=== PATIENT | male | born 1970 | race American Indian/Alaskan Native ===

== ENCOUNTER 2017-07-18 10:22 | Emergency (ER) | payer OTHER ==
[2017-07-18 10:35] VITALS: BP 146/89; PULSE 77; TEMP 98.2; BMI 26.1
[2017-07-18] MEDS ORDERED: IBUPROFEN 600 MG TABLET (FP) PO ONE ×2 (11:01→11:17)
--- NOTE | 2017-07-18 11:01 | PDOC ---
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 Patient reports R arm/elbow pain and R knee abrasion after a slip and fall in a parking lot. Patient endorses numbness to the R arm and presents to the ED for further evaluation. Allergies: NKA Past surgical history: None Social history:None PCP: Dr. Cheung <Ann Marie Fournier - Last Filed: 07/18/17 11:20> <Alejandra Willson - Last Filed: 07/18/17 12:49> - General Chief Complaint: Injury Stated Complaint: FALL/ RT HAND PAIN Time Seen by Provider: 07/18/17 10:57 Past History <Ann Marie Fournier - Last Filed: 07/18/17 11:20> - Past Medical History COPD: No - Suicide/Smoking/Psychosocial Hx Smoking History: Never smoked Have you smoked in the past 12 months: No Information on smoking cessation initiated: No Hx Alcohol Use: No Drug/Substance Use Hx: No Substance Use Type: None <Alejandra Willson - Last Filed: 07/18/17 12:49> - Past Medical History Allergies/Adverse Reactions: Allergies Allergy/AdvReac Type Severity Reaction Status Date / Time No Known Allergies Allergy Verified 07/18/17 10:32 Home Medications: Ambulatory Orders NK [No Known Home Medication] 07/18/17 Review of Systems - Review of Systems Able to Perform ROS?: Yes Comments:: 07/18/17 11:20 GENERAL/CONSTITUTIONAL: No fever or chills. No weakness. HEAD, EYES, EARS, NOSE AND THROAT: No change in vision. No ear pain or discharge. No sore throat. GASTROINTESTINAL: No nausea, vomiting, diarrhea or constipation. GENITOURINARY: No dysuria, frequency, or change in urination. CARDIOVASCULAR: No chest pain or shortness of breath. RESPIRATORY: No cough, wheezing, or hemoptysis. MUSCULOSKELETAL: +R arm pain. +R elbow pain. No joint or muscle swelling or pain. No neck or back pain. SKIN: +R knee abrasion. No rash NEUROLOGIC: No headache, vertigo, loss of consciousness, or change in strength/ sensation. ENDOCRINE: No increased thirst. No abnormal weight change. HEMATOLOGIC/LYMPHATIC: No anemia, easy bleeding, or history of blood clots. ALLERGIC/IMMUNOLOGIC: No hives or skin allergy. <Ann Marie Fournier - Last Filed: 07/18/17 11:20> *Physical Exam - Vital Signs Last Vital Signs Temp Pulse Resp BP Pulse Ox 98.2 F 77 18 146/89 100 07/18/17 10:33 07/18/17 10:33 07/18/17 10:33 07/18/17 10:33 07/18/17 10:33 - Physical Exam Comments: 07/18/17 11:20 GENERAL: Awake, alert, and fully oriented, in no acute distress HEAD: No signs of trauma EYES: PERRLA, EOMI, sclera anicteric, conjunctiva clear ENT: Auricles normal inspection, hearing grossly normal, nares patent, oropharynx clear without exudates. Moist mucosa NECK: Normal ROM, supple, no lymphadenopathy, JVD, or masses LUNGS: Breath sounds equal, clear to auscultation bilaterally. No wheezes, and no crackles HEART: Regular rate and rhythm, normal S1 and S2, no murmurs, rubs or gallops ABDOMEN: Soft, nontender, normoactive bowel sounds. No guarding, no rebound. No masses EXTREMITIES: +Tenderness over the R anatomical snuff box. +Full ROM of R wrist. +Tenderness to R lateral proximal forearm. Normal range of motion, no edema. No clubbing or cyanosis. No cords, erythema, or tenderness. NEUROLOGICAL: Cranial nerves II through XII grossly intact. Normal speech, normal gait SKIN: +Abrasion to the R knee. Warm, Dry, normal turgor, no rashes or lesions noted. <Ann Marie Fournier - Last Filed: 07/18/17 11:20> - Vital Signs Last Vital Signs Temp Pulse Resp BP Pulse Ox 98.2 F 77 18 146/89 100 07/18/17 10:33 07/18/17 10:33 07/18/17 10:33 07/18/17 10:33 07/18/17 10:33 <Alejandra Willson - Last Filed: 07/18/17 12:49> Procedures - Splinting Splint Location: Right: Wrist, Elbow Hand-Made Type: orthoglass Splint Type: Yes: Wrist, Posterior Matt Bandage: yes, 2", 3" Sling: No Complications: No <Alejandra Willson - Last Filed: 07/18/17 12:49> *DC/Admit/Observation/Transfer - Attestations Scribe Attestion: 07/18/17 11:23 Documentation prepared by Ann Marie Fournier, acting as medical office secretary for Alejandra Willson MD <Ann Marie Fournier - Last Filed: 07/18/17 11:20> - Discharge Dispostion Admit: No <Alejandra Willson - Last Filed: 07/18/17 12:49> Diagnosis at time of Disposition: Wrist pain Qualifiers: Laterality: right Qualified Code(s): M25.531 - Pain in right wrist - Discharge Dispostion Disposition: HOME Condition at time of disposition: Stable - Referrals Referrals: Chon Rivas MD [Staff Physician] - - Patient Instructions Printed Discharge Instructions: DI for Wrist Sprain, How to Take Care of Your Splint Additional Instructions: Keep thumb spica in place for 1 week, then follow up with orthopedics, as you may need another x-ray. Motrin as needed for pain. - Post Discharge Activity
== END 2017-07-18 12:52 | disposition home or self-care (01) ==
LOC: JERFT 10:22 → JER 10:22
PROC: 2W38X1Z Immobilization of Right Upper Extremity using Splint (ICD-10-PCS; principal; 2017-07-18)
DX: S59.811A Other specified injuries right forearm, initial encounter (principal); M25.521 Pain in right elbow; M25.531 Pain in right wrist; W18.39XA Other fall on same level, initial encounter; Y93.89 Activity, other specified; Y92.481 Parking lot as the place of occurrence of the external cause; Y99.0 Civilian activity done for income or pay
CPT/HCPCS: 73090-TC-RT-FY; 73110-TC-RT-FY; 73130-TC-RT-FY; 99281-25